=== PATIENT | female | born 2000 | race Hispanic/Latino ===

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

== ENCOUNTER 2022-05-23 20:04 | Emergency (ER) | payer OTHER | END 2022-05-23 20:45 | disposition home or self-care (01) | LOC: ERS 20:04 | DX: R42 Dizziness and giddiness (principal) | CPT/HCPCS: 99284 ==